=== PATIENT | male | born 1960 | race African-American/Black ===

== ENCOUNTER 2017-03-07 11:52 | Emergency (ER) | payer BC ==
[~2017-03-07] VITALS: Ht 188 cm; Wt 93.4 kg
[2017-03-07 12:27] LABS: HEMATOCRIT 39.5 % (38.0-50.0); HEMOGLOBIN 13.3 G/DL (12.5-16.6); MCH 28.8 PG (29.0-34.0); MCHC 33.7 G/DL (30.0-36.0); MCV 85.5 FL (86-99); PLATELET COUNT 184 K/uL (156-360); RBC DIS.WIDTH-CV 12.7 % (11.8-14.6); RED BLOOD COUNT 4.62 M/uL (4.00-5.50); WHITE BLOOD COUNT 7.1 K/uL (4.1-10.2)
[2017-03-07 12:36] LABS: CHLORIDE 99 mEq/L (99-109); POTASSIUM 3.8 mEq/L (3.7-5.4); SODIUM 131 mEq/L (136-147)
[2017-03-07 12:38] LABS: GLUCOSE 284 mg/dL (70-99); TOTAL PROTEIN 7.6 g/dL (6.4-8.3)
[2017-03-07 12:40] LABS: TOTAL BILIRUBIN 0.5 mg/dL (0.0-1.0)
[2017-03-07 12:42] LABS: ALKALINE PHOSPHATASE 98 IU/L (3-129); CREATININE 1.6 mg/dL (0.6-1.3)
[2017-03-07 12:43] LABS: AST (GOT) 25 IU/L (2-34); UREA NITROGEN (BUN) 21 mg/dL (9-23)
[2017-03-07 12:45] LABS: ALT (GPT) 32 IU/L (3-49)
[2017-03-07 12:52] LABS: GFR ESTIMATE (CALCULATED) 48 mL/min/ (58.99-99999)
[2017-03-07] MEDS ORDERED: HUMALOG MI100 UNIT/5 SC (13:18)
[2017-03-07] MEDS ORDERED: RAMIPRIL10 MG PO (13:18)
[2017-03-07] MEDS ORDERED: ROSUVASTATIN CA20 MG PO (13:19)
[2017-03-07] MEDS ORDERED: ASPIR 8181 M1 PO (13:19)
[2017-03-07 14:17] LABS: APPEARANCE SL.HAZY ((CLEAR)); BILIRUBIN NEGATIVE; BLOOD NEGATIVE; COLOR YELLOW ((YELLOW)); GLUCOSE (STRIP) 50; KETONES NEGATIVE; LEUKOCYTES NEGATIVE; NITRITE NEGATIVE; PROTEIN (STRIP) 30; SPECIFIC GRAVITY 1.025 (1.000-1.030); UROBILINOGEN 0.2 MG/DL (0.2-1.0)
[2017-03-07 14:50] LABS: BACTERIA RARE /HPF; EPITHELIAL CELLS RARE /HPF; MUCUS 1+ /LPF; RED BLOOD CELLS 0-5 /HPF (0-5); UCUL ADDED? NO; WHITE BLOOD CELLS 0-5 /HPF (0-5)
[2017-03-07] MEDS ORDERED: ZOFRAN ODT4 MG PO (16:46)
[2017-03-07] MEDS ORDERED: PROAIR HFA8.5 GM IH (16:46)
[2017-03-07] MEDS ORDERED: FLEXERIL10 MG PO (16:46)
[2017-03-07] MEDS ORDERED: TESSALON200 MG PO (16:46)
[2017-03-07] MEDS ORDERED: IBUPROFEN800 MG PO (16:49)
[2017-03-07 17:05] VITALS: BP 131/62
== END 2017-03-07 17:07 | disposition home or self-care (01) ==
LOC: EME 11:52
DX: J10.1 Influenza due to other identified influenza virus with other respiratory manifestations (principal); R11.2 Nausea with vomiting, unspecified; E10.65 Type 1 diabetes mellitus with hyperglycemia; Z79.4 Long term (current) use of insulin; I10 Essential (primary) hypertension; Z79.82 Long term (current) use of aspirin
CPT/HCPCS: 80053; 81003; 85027; 87502; J1885; J2405; J7030; J7040

== ENCOUNTER 2017-03-11 14:32 | Emergency (ER) | payer BC ==
[~2017-03-11] VITALS: Ht 188 cm; Wt 95.2 kg
[~2017-03-11 14:32] MED LIST: ASPIR 8181 M1 PO; FLEXERIL10 MG PO; HUMALOG MI100 UNIT/5 SC; IBUPROFEN800 MG PO; PROAIR HFA8.5 GM IH; RAMIPRIL10 MG PO; ROSUVASTATIN CA20 MG PO; TESSALON200 MG PO; ZOFRAN ODT4 MG PO
[2017-03-11 15:35] LABS: HEMATOCRIT 37.6 % (38.0-50.0); HEMOGLOBIN 12.7 G/DL (12.5-16.6); MCH 28.9 PG (29.0-34.0); MCHC 33.8 G/DL (30.0-36.0); MCV 85.5 FL (86-99); PLATELET COUNT 174 K/uL (156-360); RBC DIS.WIDTH-CV 12.6 % (11.8-14.6); RBC DIS.WIDTH-SD 39.4 % (39-53); WHITE BLOOD COUNT 6.1 K/uL (4.1-10.2)
[2017-03-11 15:45] LABS: CHLORIDE 106 mEq/L (99-109); POTASSIUM 4.2 mEq/L (3.7-5.4); SODIUM 137 mEq/L (136-147)
[2017-03-11 15:46] LABS: GLUCOSE 108 mg/dL (70-99)
[2017-03-11 15:50] LABS: GFR ESTIMATE (CALCULATED) > 59 mL/min/ (58.99-99999)
[2017-03-11 15:51] LABS: UREA NITROGEN (BUN) 17 mg/dL (9-23)
[2017-03-11 15:52] LABS: CREATININE 1.1 mg/dL (0.6-1.3)
[2017-03-11] MEDS ORDERED: NAPROSYN500 MG PO (18:50)
[2017-03-11 19:25] VITALS: BP 102/65
== END 2017-03-11 19:30 | disposition home or self-care (01) ==
LOC: EME 14:32
DX: S39.012A Strain of muscle, fascia and tendon of lower back, initial encounter (principal); J10.1 Influenza due to other identified influenza virus with other respiratory manifestations; X58.XXXA Exposure to other specified factors, initial encounter; E11.9 Type 2 diabetes mellitus without complications; Z79.4 Long term (current) use of insulin; I10 Essential (primary) hypertension
CPT/HCPCS: 80048; 85027; 87502; 99281; 99284; J1885

== ENCOUNTER → 2017-04-12 | Outpatient (CLI) | payer BC ==
[~2017-04-12] MED LIST changes: +NAPROSYN500 MG PO
== END | disposition home or self-care (01) ==
LOC: NUC 10:00
DX: M19.072 Primary osteoarthritis, left ankle and foot (principal); M19.071 Primary osteoarthritis, right ankle and foot; M17.0 Bilateral primary osteoarthritis of knee; R93.7 Abnormal findings on diagnostic imaging of other parts of musculoskeletal system
CPT/HCPCS: 78306; A9503